=== PATIENT | male | born 1980 | race Caucasian/White ===

== ENCOUNTER 2019-09-06 22:36 | Emergency (ER) | payer OTHER ==
[~2019-09-06] VITALS: Ht 190.5 cm; Wt 111.1 kg
[~2019-09-06 22:36] MED LIST: ACETAMINOPHEN-1 EAC1 PO; APAP500 PO; AZITHROMYCIN 2250 MG PO; BACTRIM DS TAB1 EACH PO; COMPLETE M9 MG/15 ML; DOXYCYCLINE 10100 M1 PO; FLEXERIL PO; IBUPROFEN 800800 M1 PO; IBUPROFEN 800800 MG PO; MEDROLDOSEPACK PO; MULTIVITAMINS1 EAC7; NEXIUM40 MG PO; NORCO 5-325 TA1 EACH PO; PENICILLIN VK500 M1 PO; PRILOSEC 20 MG20 MG PO; TRAMADOL 50 MG50 MG PO; ULTRAM 50MG TAB50 MG PO; VENTOLIN HFA 1818 GM INH; ZOFRAN4 MG PO; ZPAK PO
[2019-09-06] MEDS ORDERED: ZANTAC 150MG T150 M1 PO (22:45)
[2019-09-07] MEDS ORDERED: LORCET 5-325 M1 EACH PO (00:01)
[2019-09-07] MEDS ORDERED: KEFLEX500 M1 PO (00:01)
[2019-09-07 00:12] VITALS: BP 123/78
== END 2019-09-07 00:07 | disposition home or self-care (01) ==
LOC: M.ERS 22:36
DX: S61.012A Laceration without foreign body of left thumb without damage to nail, initial encounter (principal); F31.9 Bipolar disorder, unspecified; F41.9 Anxiety disorder, unspecified; F17.210 Nicotine dependence, cigarettes, uncomplicated; Z88.0 Allergy status to penicillin; W26.0XXA Contact with knife, initial encounter; Y93.89 Activity, other specified; Y92.89 Other specified places as the place of occurrence of the external cause; Y99.8 Other external cause status

== ENCOUNTER 2021-05-26 08:37 | Emergency (ER) | payer OTHER ==
[~2021-05-26] VITALS: Ht 190.5 cm; Wt 120.2 kg
[~2021-05-26 08:37] MED LIST changes: +KEFLEX500 M1 PO; +LORCET 5-325 M1 EACH PO; +ZANTAC 150MG T150 M1 PO
[2021-05-26] MEDS ORDERED: ANTACID (08:52)
[2021-05-26 10:00] VITALS: BP 134/88
== END 2021-05-26 10:00 | disposition home or self-care (01) ==
LOC: M.ERS 08:37
DX: J06.9 Acute upper respiratory infection, unspecified (principal); Z20.822 Contact with and (suspected) exposure to COVID-19; F17.210 Nicotine dependence, cigarettes, uncomplicated; Z88.0 Allergy status to penicillin